=== PATIENT | female | born 1985 | race Caucasian/White ===

== ENCOUNTER 2020-02-03 11:31 | Emergency (ER) | payer OTHER, SELFPAY ==
--- NOTE | ~2020-02-03 | XR_ITS ---
EXAMINATION: XR chest 2V EXAM DATE: 02/03/2020 12:43 INDICATION: Midline chest pain. Dizziness. Hx Of COVID, supraventricular tachycardia. TECHNIQUE: Frontal and lateral projections of the chest obtained and reviewed. Comparison is made to prior examination from 08/16/2006. FINDINGS: The lungs are clear. There are no pleural effusions. The cardiomediastinal silhouette is within normal limits. There is no pneumothorax suspected. The bones and soft tissues are unremarkab le. IMPRESSION: No acute cardiopulmonary findings. Reviewed, dictated and finalized at location A. ET BRAIDER
[2020-02-03 11:38] VITALS: BP 144/98; PULSE 75; RESP 18; TEMP 36.6; O2SAT 100
--- NOTE | 2020-02-03 11:38 | ECG_ITS ---
Measurements Intervals [place] Rate: 68 P: 71 [place]: 141 QRS: 74 QRSD: 92 T: 67 QT: 419 QTc: 448 Interpretive Statements SINUS RHYTHM WITH MARKED SINUS ARRHYTHMIA BASELINE ARTIFACT- I, II, III, AVL NORMAL ECG Electronically Signed On 02-03-2020 12:27:22 [employer] by Gary Eng D.O.
--- NOTE | 2020-02-03 11:42 | ED.CHESTPAIN ---
HPI - Chest Pain General Chief Complaint: Chest Pain Stated Complaint: aicha rodriguez released on Time Seen by Provider: 02/03/20 11:42 Source: patient Mode of arrival: ambulatory Limitations: no limitations History of Present Illness HPI narrative: Pt c/o chest pain, burning, 6 out of 10, nonradiating started today. Patient denies shortness of breath, nausea, vomiting, diaphoresis, abdominal pain, fever or chills.. Patient states that she was recently was cleared from Covid few days ago after having it for almost 2 weeks. Related Data Allergies Allergy/AdvReac Type Severity Reaction Status Date / Time No Known Allergies Allergy Unverified 05/12/19 13:32 Review of Systems Review of Systems: All systems reviewed & are unremarkable except as noted in HPI and below Constitutional: Constitutional: Denies body ache(s), Denies chills, Denies excessive sweating, Denies fatigue, Denies fever(s), Denies headache(s), Denies lethargy, Denies malaise, Denies weakness and Denies weight loss Eyes: Eyes: Denies blurry vision, Denies change in vision and Denies loss of vision ENT: Denies dizziness, Denies ear discharge, Denies headache(s), Denies lip swelling, Denies epistaxis, Denies nasal congestion, Denies neck pain, Denies throat swelling and Denies tongue swelling Cardiovascular: Cardiovascular: Denies diaphoresis, Denies rapid heart rate, Denies edema, Denies irregular heart rhythm, Denies lightheadedness and Denies palpitations Respiratory: Respiratory: Denies chest congestion, Denies cough, Denies hemoptysis, Denies dyspnea and Denies dyspnea on exertion Gastrointestinal: Gastrointestinal: Denies abdominal pain, Denies melena, Denies hematochezia, Denies diarrhea, Denies nausea, Denies vomiting and Denies hematemesis Musculoskeletal: Musculoskeletal: Denies abnormal gait, Denies deformity, Denies joint swelling, Denies limited range of motion, Denies neck pain and Denies numbness Neurologic: Denies Abnormal speech present, Denies abnormal gait, Denies confusion, Denies dizziness, Denies headache(s), Denies focal weakness, Denies loss of vision, Denies numbness, Denies Other visual disturbances, Denies Sensory deficit (Neuro) and Denies weakness Psychiatric: Psychiatric: Denies confusion, Denies depression, Denies auditory hallucinations, Denies homicidal ideation and Denies suicidal ideation Endocrine: Endocrine: Denies cold intolerance, Denies excessive sweating, Denies fatigue, Denies heat intolerance and Denies palpitations Hematologic/Lymphatic: Hematologic/Lymphatic: Denies easy bleeding and Denies easy bruising Allergic/Immunologic: Allergic/Immunologic: Denies lip swelling, Denies throat swelling and Denies tongue swelling PMFSH Past Medical History Medical History (Updated 02/03/20 @ 13:14 by Jose Alejandro Serna MD) LYN (generalized anxiety disorder) Migraines PMDD (premenstrual dysphoric disorder) Social History Social History (System 05/12/19 @ 13:32 by Kassie Orta) Smoking packs per day: 1 Smoking cigarettes per day: 20.0 Years smoked: 10 Smoking pack-years: 10.00 Smoking status: Former smoker Tobacco type: cigarettes Second hand tobacco smoke exposure: No Smoking end date: 03/03/11 Alcohol intake: current Drinks per week: 8 Substance use: never Substance use type: does not use Gender identity (if verbalized by the patient): Female Exam Const: General: cooperative, healthy appearing, comfortable, no acute distress, well developed, alert and awake; No confusion Orientation/consciousness: oriented to person, oriented to place, oriented to time, patient oriented x3 and No confusion Limitations: no limitations HENMT: Head: normal to inspection, normocephalic and atraumatic Ears: hearing grossly normal bilaterally, TM normal on the right and TM normal on the left General nose exam: Normal external nose present, Normal nares present and No nasal discharge present Face and sin
[2020-02-03 12:00] LABS: Basophils Absolute Auto 0.1 K/mm3 (0.0-0.1); Basophils Percent Auto 1.4 % (0.2-1.2); Eosinophils Absolute Auto 0.1 K/mm3 (0-0.3); Eosinophils Percent Auto 1.6 % (0-4.4); Hematocrit 39.7 % (37.0-47.0); Hemoglobin 13.3 g/dL (12.0-15.0); Immature Granulocyte Absolute 0.02 K/mm3 (0.00-0.031); Immature Granulocyte Percent A 0.3 % (0-0.5); Lymphocytes Absolute Auto 2.27 K/mm3 (0.9-3.2); Lymphocytes Percent Auto 31.1 % (18.3-44.2); Mean Corpuscular HGB Conc 33.5 g/dl (32-36); Mean Corpuscular Hemoglobin 30.7 pg (26-34); Mean Corpuscular Volume 91.7 fl (80-100); Mean Platelet Volume 9.5 fl (7.4-10.4); Monocytes Absolute Auto 0.6 K/mm3 (0.1-0.6); Monocytes Percent Auto 7.5 % (2.6-8.5); Neutrophils Absolute Auto 4.2 K/mm3 (1.3-6.7); Neutrophils Percent Auto 58.1 % (45.5-73.1); Platelet Count Result 299 k/mm3 (150-375); Red Blood Count 4.33 M/mm3 (4.2-5.4); Red Cell Distribution Width 11.6 % (11.5-14.5); White Blood Count 7.3 K/mm3 (4.5-10.0)
[2020-02-03 12:11] LABS: Anion Gap 7 mmol/L (8-16); Blood Urea Nitrogen 13 mg/dL (7-17); Carbon Dioxide 27 mmol/L (22-30); Chloride 103 mmol/L (98-107); Estimated CRCL calculation 88 ml/min; Estimated Glomerular Filt Rate > 60; Glucose 100 mg/dL (65-105); Potassium 4.3 mmol/L (3.4-5.0); Sodium 137 mmol/L (137-145)
[2020-02-03 12:12] LABS: INR 0.9; Prothrombin Time 12.6 Seconds (11.1-14.7)
[2020-02-03 12:13] LABS: Partial Thromboplastin Time 26.9 SECONDS (22.3-36.8)
[2020-02-03 12:22] LABS: Troponin I < 0.012 ng/mL (0.000-0.034)
[2020-02-03] MEDS: ASPIRIN 81 MG CHEWABLE TABLET 324 MG PO (12:32)
[2020-02-03 14:14] VITALS: BP 113/76; PULSE 68; RESP 16; O2SAT 99
== END 2020-02-03 14:16 | disposition home or self-care (01) ==
PROVIDERS: Emergency Provider Emergency Medicine; PCP Family Medicine
DX: R07.89 Other chest pain (principal); Z86.19 Personal history of other infectious and parasitic diseases
CPT/HCPCS: 36415; 71046; 80048; 84484; 85025; 85380; 85610; 85730; 93005; 99284; A9270

== ENCOUNTER 2020-12-18 13:13 | Outpatient (CLI) | payer OTHER, SELFPAY ==
--- NOTE | ~2020-12-18 | CT_ITS ---
EXAMINATION: CT abdomen pelvis w con INDICATION: Other specified disorders of the kidney, possible right-sided cysts TECHNIQUE: Computed tomographic images of the abdomen and pelvis were obtained after the administrati on of 100 cc of Omnipaque 350 intravenous contrast. The dose-length product (DLP) was 664.50 mGy-cm. Automated exposure control and iterative reconstruction technique were employed. COMPARISON: None available FINDINGS: The lung bases are clear. The heart size is normal. The liver, spleen, pancreas, gallbladde r, and adrenal glands are normal. There is a 2 mm nonobstructing stone in the lower pole of the other diez normal-appearing right kidney. The left kidney is unremarkable. No pathologically enlarged abdom inal or pelvic lymph nodes are identified. There is no free intraperitoneal gas or evidence of bowel obstruction. 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 The appendix is normal. There is a fat-containing u mbilical hernia. Internal stabilization hardware is noted in the distal right humerus. IMPRESSION: 1. Nonobstructing right kidney stone, otherwise unremarkable examination. Reviewed, dictated and finalized at location A.
== END 2020-12-18 13:14 | disposition home or self-care (01) ==
LOC: ANHIMG 13:17
PROVIDERS: PCP Family Medicine; Visit Provider Nurse Practitioner Family
DX: N28.89 Other specified disorders of kidney and ureter (principal); R11.2 Nausea with vomiting, unspecified; R93.5 Abnormal findings on diagnostic imaging of other abdominal regions, including retroperitoneum; N20.0 Calculus of kidney
CPT/HCPCS: 74177; Q9967

== ENCOUNTER → 2022-06-21 12:03 | Outpatient (CLI) | payer BC, SELFPAY ==
--- NOTE | ~2022-06-21 | XR_ITS ---
XR ankle RT 2V DATE: 06/21/2022 12:25 INDICATION: Pain TECHNIQUE: 2 views COMPARISON: None FINDINGS: No fracture or dislocation of the ankle or disruption of the ankle mortise. IMPRESSION: No significant abnormality Reviewed, dictated and finalized at location B. IMPRESSION: No significant abnormality
--- NOTE | ~2022-06-21 | XR_ITS ---
XR foot RT standing 2V DATE: 06/21/2022 12:25 INDICATION: Right foot TECHNIQUE: Weightbearing AP and lateral views COMPARISON: None FINDINGS: Mild hallux valgus and bunion deformity. No fracture or dislocation, periosteal reaction o r bone destruction. No erosive changes IMPRESSION: Mild hallux valgus and bunion deformity Reviewed, dictated and finalized at location B.
== END ==
PROVIDERS: PCP Physician Assistant; Visit Provider Physician Assistant
DX: M79.671 Pain in right foot (principal); M20.11 Hallux valgus (acquired), right foot
CPT/HCPCS: 73600; 73620